=== PATIENT | male | born 1970 | race Caucasian/White ===

== ENCOUNTER 2021-09-14 08:37 | Outpatient (REF) | payer OTHER, SELFPAY ==
[2021-09-14 09:33] LABS: Appearance Urine CLEAR; Color Urine YELLOW; Glucose Urine UA >=1000 MG/DL (NEG); Leukocyte Esterase Urine NEG (NEG); Nitrite Urine NEG (NEG); Urine Blood NEG (NEG); Urine Ketones NEG (NEG); Urine Protein NEG (NEG-TRACE)
[2021-09-14 09:34] LABS: Hematocrit 43.7 % (42.0-52.0); Hemoglobin 14.4 g/dl (14.0-18.0); Mean Corpuscular Volume 88.1 fL (80.0-98.0); Mean Platelet Volume 9.6 fL (9.4-12.4); Platelet Count 234 X10*3/uL (160-400); Red Blood Count 4.96 X10*6/uL (4.60-5.80); Red Cell Distribution Width 12.9 % (11.0-16.0); White Blood Count 6.1 X10*3/uL (4.8-10.8)
[2021-09-14 09:44] LABS: Estimated Average Glucose 169 mg/dL; Hemoglobin A1c % 7.5 %
[2021-09-14 09:58] LABS: RBC Urine 0 /HPF (0); WBC Urine 0-2 /HPF (0-4)
[2021-09-14 10:00] LABS: Alanine Aminotransferase 26 U/L (0-40); Albumin Level 4.3 g/dL (3.5-5.0); Alkaline Phosphatase 50 U/L (39-117); Anion Gap 13 (12-20); Aspartate Amino Transferase 18 U/L (5-37); Bilirubin Direct 0.7 mg/dL (0.0-0.5); Bilirubin Total 2.2 mg/dL (0.0-1.0); Blood Urea Nitrogen 18 mg/dL (9-16); Calcium 9.2 mg/dL (8.4-10.2); Carbon Dioxide 27 mmol/L (22-29); Chloride 103 mmol/L (96-108); Cholesterol 163 mg/dL; Estimated Glomerular Filt Rate > 60; Glucose Random 152 mg/dL (60-115); HDL Cholesterol 43 mg/dL; LDL Cholesterol Calculated 91 mg/dl; Potassium 4.3 mmol/L (3.3-5.1); Sodium 139 mmol/L (135-145); Triglycerides 148 mg/dL
[2021-09-14 10:01] LABS: Bacteria Urine TRACE /LPF
[2021-09-14 10:03] LABS: Creatinine Urine 90.73 mg/dL; Microalbum/Creatinine Ratio Ur 78.2 ug/mg cr
[2021-09-14 10:21] LABS: Thyroid Stimulating Hormone 0.95 uIU/mL (0.32-4.0)
== END 2021-09-14 08:38 | disposition home or self-care (01) ==
LOC: HO.LAB 08:37
PROVIDERS: PCP Internal Medicine; Visit Provider Internal Medicine
DX: E11.9 Type 2 diabetes mellitus without complications (principal)
CPT/HCPCS: 36415; 80048; 80061; 80076; 81001; 82043; 83036; 84443; 85027

== ENCOUNTER → 2022-01-30 07:59 | Outpatient (BNVA) | payer OTHER, SELFPAY | PROVIDERS: PCP Internal Medicine; Referring Provider Internal Medicine; Visit Provider Nurse Practitioner Family | DX: Z13.89 Encounter for screening for other disorder (principal) ==

== ENCOUNTER 2022-05-06 11:22 | Day surgery (SDC) | payer OTHER, SELFPAY ==
--- NOTE | 2022-05-03 10:38 | HO.ANESPROP2 ---
Documented by User: Agustina Randhawa NP 05/03/22 10:39 HPI - Anesthesia Eval Consult details Narrative: 52yo M for Colonoscopy PMFSH Active Problems Active Problems: All Active Problems (Updated 09/25/21 @ 19:23 by Micah Feliciano MD) Screening for colon cancer (Acute) Class 2 severe obesity with body mass index (BMI) of 35 to 39.9 with serious comorbidity (Acute) Annual physical exam (Acute) Diabetes mellitus (Acute) Past Medical History Medical History (Updated 05/03/22 @ 10:38 by Agustina Randhawa NP) Class 2 severe obesity with body mass index (BMI) of 35 to 39.9 with serious comorbidity Diabetes mellitus Family History Family History Other Adopted Surgical History Surgical History No pertinent past surgical history Social History Social History Housing: House Alcohol intake: current Alcohol intake frequency: a few times a week Alcohol type: beer Patient Tobacco Use Status: Never used Tobacco e-Cigarette/Vaping Use: Never Used Second Hand Smoke Exposure: Yes Use of substances other than those prescribed or required for medical reasons: No Are you DNR?: No Advance Directives: No Advance Directives Information Provided: Yes Nutrition Risks: No Nutritional Risk service: No Current occupational status: employed Current occupation: [employer]formerly [employer] Cognitive needs: No Hearing needs: No Vision needs: No Meds Allergies Allergy/AdvReac Type Severity Reaction Status Date / Time No Known Allergies Allergy Unverified 01/30/22 08:08 [No Known Allergies*] Exam Exam Date and Time: May 03, 2022 1038 Pertinent Lab Results Pertinent Lab Results: Laboratory Tests 09/14/21 09/14/21 08:47 08:47 WBC 6.1 Hgb 14.4 Hct 43.7 Plt Count 234 Sodium 139 Potassium 4.3 Chloride 103 Carbon Dioxide 27 BUN 18 H Creatinine 1.06 Assessment and Plan Assessment Anesthesia Assessment: Chart Reviewed Documented by User: Tara Carpio MD 05/06/22 12:20 [facility] Past Medical History Medical History (Updated 05/03/22 @ 10:38 by Agustina Randhawa NP) Class 2 severe obesity with body mass index (BMI) of 35 to 39.9 with serious comorbidity Diabetes mellitus Family History Family History Other Adopted Family history of problems with anesthesia: No Surgical History Surgical History No pertinent past surgical history History of Problems with Anesthesia: No Social History Social History Housing: House Alcohol intake: current Alcohol intake frequency: a few times a week Alcohol type: beer Patient Tobacco Use Status: Never used Tobacco e-Cigarette/Vaping Use: Never Used Second Hand Smoke Exposure: Yes Use of substances other than those prescribed or required for medical reasons: No Are you DNR?: No Advance Directives: No Advance Directives Information Provided: Yes Nutrition Risks: No Nutritional Risk service: No Current occupational status: employed Current occupation: [employer]formerly [employer]) Cognitive needs: No Hearing needs: No Vision needs: No Meds Allergies Allergy/AdvReac Type Severity Reaction Status Date / Time No Known Allergies Allergy Unverified 01/30/22 08:08 [No Known Allergies*] Exam Airway Mallampati Class: II TM Dist: >3cm Neck ROM: Full Heart: rrr Lungs: cta Assessment and Plan Assessment Anesthesia Assessment: Anesthesia Plan Discussed and Chart Reviewed Final Anesthetic Review Family History of Problems with Anesthesia: No History of Problems with Anesthesia: No NPO: Yes ASA Class: III Final Preanesthetic Review: No Changes in Pt Med Stat, Meds/Allgs Chart Reviewed, Consent Obtained/Reviewed and Anes Risks/Benef Reviewed Patient Risk: Intermediate Procedure Risk: Intermediate Anesthetic Plan Anesthetic Plan: MAC: Disposition: Standard PACU
--- NOTE | 2022-05-06 11:31 | MHC.SHP ---
Pre-Procedural Eval Section A Date of Service: 05/06/22 The patient is an INPATIENT: No The History & Physical has been completed within 30 days and I have reviewed it.: No Section B Chief Complaint: screening Details of Present Illness: Colon cancer screening Relevant Family History (Specify if Yes): No Relevant Social History: None Present Medications: see Short Stay Collaborative assessment Medical History: Significant History (DM, Obesity) History of Previous Operations: No relevant previous surgery Allergies: Allergies Allergy/AdvReac Type Severity Reaction Status Date / Time No Known Allergies Allergy Unverified 01/30/22 08:08 [No Known Allergies*] Review of Systems Sugical H&P ROS: Negative: Constitution, Cardiovascular, Respiratory and Gastrointestinal Exam Surgical H&P Exam: Normal: Heart, Normal: Lungs, Normal: Extremities and Normal: Abdomen Plan Diagnosis/Plan: Unchanged I have reviewed the history and physical and performed a pertinent physical examination on my patient. No changes have occurred unless specified.
--- NOTE | 2022-05-06 11:32 | P.BOP_ITS ---
Brief Operative Note Date of Service: 05/06/22 Pre-op diagnosis: Colon cancer screening Post-op diagnosis: other (Colon polyps, diverticulosis) Procedure: COLONOSCOPY TILL CECUM WITH SNARE POLYPECTOMY Consent: Indications for the procedure and potential complications of bleeding, perforation, reaction to medications and missed diagnosis were discussed with the patient and informed consent was obtained. Instrument: Olympus CF H 190 L variable stiffness adult colonoscope Monitoring: Vital signs and clinical assessment, intermittent blood pressure monitoring, continuous EKG monitoring, Pulse oximetry and Carbon Dioxide monitoring were done throughout the procedure. Colon withdrawl time was 18 minutes. Procedure: The patient was placed in the left lateral decubitis position and pre-procedure medications were administered. After a digital rectal examination of the ano-rectum, the video colonoscope was inserted into the rectum and advanced through the colon to the cecum. The colonoscope was slowly withdrawn in a retrograde panoramic fashion and the colon mucosa was carefully examined including a retroflexed view of the rectum. Findings and interventions are described below. Procedure Difficulty: Without difficulty Findings: Terminal Ileum: Not evaluated Cecum: Normal Ascending Colon: An 8-9 mm sessile polyp in proximal AC removed with a cold snare Transverse Colon: Normal Descending Colon: Moderate diverticulosis Sigmoid Colon: Moderate diverticulosis Rectum: Normal Ano-rectum: Hypertrophied anal papillae Colon preparation: Good after some irrigation Impression and Post Procedure Diagnosis: Colonoscopy Findings: One small polyp removed Moderate diverticulosis seen in the left colon Plan: Await pathology results Patient has an appointment on 05/20/22 in the GI Clinic with Chayo Quick FNP- [facility]. Repeat Colonoscopy interval based on path results - in 5 years if polyps are adenomatous and since family hx if not known (pt is adopted) - adult colonoscope for future colonoscopies. Above findings were reviewed with the patient and colon polyps and diverticulosis handouts were given in the discharge area Surgeon: Robert Wright MD Anesthesia: MAC (Dr Vickers) Was an Sanipractic Physician used for this Procedure?: Yes Sanipractic Physician: Aria Galo Estimated blood loss (mL): 0 Pathology: other (A. ascending colon polyp) Condition: stable Disposition: PACU
[2022-05-06 11:37] VITALS: BMI 34.2
[2022-05-06] MEDS: Lactated Ringers 1,000 ML 100 ML IVCONT (12:14)
[2022-05-06 12:18] LABS: Glucose, Whole Blood 126 mg/dL (60-115)
--- NOTE | 2022-05-06 12:24 | W.PM.OPN ---
Operative Note Operative Note Date of Service: 05/06/22 Narrative: Pre-op diagnosis: Colon cancer screening Post-op diagnosis:?other (Colon polyps, diverticulosis) Procedure: COLONOSCOPY TILL CECUM WITH SNARE POLYPECTOMY Consent: Indications for the procedure and potential complications of bleeding, perforation, reaction to medications and missed diagnosis were discussed with the patient and informed consent was obtained. Instrument: Olympus CF H 190 L variable stiffness adult colonoscope Monitoring: Vital signs and clinical assessment, intermittent blood pressure monitoring, continuous EKG monitoring, Pulse oximetry and Carbon Dioxide monitoring were done throughout the procedure. Colon withdrawl time was 18 minutes. Procedure: The patient was placed in the left lateral decubitis position and pre-procedure medications were administered. After a digital rectal examination of the ano-rectum, the video colonoscope was inserted into the rectum and advanced through the colon to the cecum. The colonoscope was slowly withdrawn in a retrograde panoramic fashion and the colon mucosa was carefully examined including a retroflexed view of the rectum. Findings and interventions are described below. Procedure Difficulty: Without difficulty Findings: Terminal Ileum: Not evaluated Cecum:? Normal Ascending Colon:? An 8-9 mm sessile polyp in proximal AC removed with a cold snare Transverse Colon:? Normal Descending Colon:? Moderate diverticulosis Sigmoid Colon:? Moderate diverticulosis Rectum:? Normal Ano-rectum:? Hypertrophied anal papillae Colon preparation:? Good after some irrigation Impression and Post Procedure Diagnosis: Colonoscopy Findings: One small polyp removed Moderate diverticulosis seen in the left colon Plan: Await pathology results Patient has an appointment on 05/20/22 in the GI Clinic with Chayo Quick FNP-BC. Repeat Colonoscopy interval based on path results - in 5 years if polyps are adenomatous and since family hx is not known (pt is adopted) - adult colonoscope for future colonoscopies. Above findings were reviewed with the patient and colon polyps and diverticulosis handouts were given in the discharge area Surgeon: oRbert Wright MD Anesthesia:?MAC (Dr Vickers) Was an Hand Cutter Apprentice used for this Procedure?:?Yes Hand Cutter Apprentice:?Aria Galo Estimated blood loss (mL):?0 Pathology:?other (A. ascending colon polyp) Condition:?stable Disposition:?PACU
[2022-05-06 12:25] VITALS: BP 169/83; PULSE 82; RESP 17; TEMP 36.9; O2SAT 97
[2022-05-06 12:57] VITALS: BP 122/72; PULSE 77; RESP 16; TEMP 37.1; O2SAT 95
[2022-05-06 13:09] LABS: Glucose, Whole Blood 123 mg/dL (60-115)
[2022-05-06 13:12] VITALS: BP 146/90; PULSE 75; RESP 16; TEMP 37.1; O2SAT 97
== END 2022-05-06 14:04 | disposition home or self-care (01) ==
PROVIDERS: PCP Internal Medicine; Visit Provider Internal Medicine Gastroenterology
PROC: 0DJD8ZZ Inspection of Lower Intestinal Tract, Via Natural or Artificial Opening Endoscopic (ICD-10-PCS; CPT 45378; principal; 2022-05-06 12:40)
DX: Z12.11 Encounter for screening for malignant neoplasm of colon (principal); D12.2 Benign neoplasm of ascending colon; K57.30 Diverticulosis of large intestine without perforation or abscess without bleeding; K62.89 Other specified diseases of anus and rectum; E66.01 Morbid (severe) obesity due to excess calories; Z68.36 Body mass index [BMI] 36.0-36.9, adult; E11.9 Type 2 diabetes mellitus without complications; Z79.84 Long term (current) use of oral hypoglycemic drugs
CPT/HCPCS: 45385; 82947; 88305

== ENCOUNTER 2023-07-17 13:50 | Outpatient (AMB) | payer OTHER, SELFPAY ==
--- NOTE | 2023-07-17 14:13 | MHC.PC.OV ---
Vital Signs 07/17/23 14:14 Height 6 ft 1 in Weight 279 lb 4 oz BMI 36.8 BP 132/80 Blood Pressure Location Lt brachial Position Sitting Pulse 99 Pulse Source Pulse Oximeter Pulse Oximetry (%) 94 Oxygen Delivery Method Room Air Intake Visit Reasons: 6 month f/u Intake Note: Patient is here to follow up on DM, Obesity. Hall Monitor Required: No Membership Administrator: Not Required per policy Accompanied by: Self / Same As Patient Allergies No Known Allergies [No Known Allergies*] Allergy (Verified 07/17/23 15:25) Medication List - Last Reconciled 07/17/23 by Micah Feliciano MD colchicine (gout) 0.6 mg PO BID empagliflozin (Jardiance) 25 mg PO DAILY hydrochlorothiazide 25 mg PO DAILY lisinopril 20 mg PO DAILY pioglitazone 15 mg PO DAILY simvastatin 40 mg PO DAILY Tobacco use date assessed: 07/17/23 Dental Screening Dental Screen Date: 07/17/23 Did you have a dental visit in the last 12 months?: No Did you have a dental problem in the last 6 months where you did not have access to dental care?: No Was dental information given to patient?: No HPI 6 month f/u HPI Details 53-year-old male presents to the office to discuss his chronic medical conditions. Patient reports that he has not been taking the Ozempic medication. Insurance is not covering the medication. He is not checking his blood sugars at home. Continues to work and do all activities of daily living. Not following any particular diet or exercise. Patient would like a refill on colchicine. Since last office visit, had 1 episode of gout. 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 Raghu Hogan, Luz Gonzalez, Sami Spaulding and colleagues, with an educational ismael from [employer] Physical exam (Primary Care) Vital Signs: Last Vital Signs Pulse 99 07/17/23 14:14 BP 132/80 07/17/23 14:14 Pulse Ox 94 07/17/23 14:14 Oxygen Delivery Method Room Air 07/17/23 14:14 BMI result Body Mass Index 36.8 Tobacco/Smoking Status: Tobacco use Status Tobacco use date assessed 07/17/23 07/17/23 14:14 Patient Tobacco Use Status Never used Tobacco 07/17/23 14:14 e-Cigarette/Vaping Use Never Used 07/17/23 14:14 Thrive Assessment: Date of Thrive Assessment Date Thrive assessed 01/16/23 07/17/23 14:14 Const General: cooperative and healthy appearing Nutritional Appearance: well nourished Orientation/consciousness: patient oriented x3 Limitations: no limitations HENMT Head: Yes normal to inspection Eyes General: appearance normal, both eyes and all related structures Neck Neck: Yes normal visual inspection Chest Chest palpation & inspection: normal palpation of entire chest wall Resp Effort & Inspection: normal respiratory effort Neuro General: patient oriented x3 Results AMB Hemoglobin A1c AMB Hemoglobin A1c 9.7 % Last Edit by RADHA Diggs on 07/17/23 14:28 Results Reviewed Results Reviewed: Laboratory Last Values Hgb A1c (Clinic) 9.7 % (4.0-6.0) H 07/17/23 14:13 Assessment and Plan Assessment & Plan (1) Class 2 severe obesity with body mass index (BMI) of 35 to 39.9 with serious comorbidity: Code(s): E66.01 - Morbid (severe) obesity due to excess calories Plan: Counseling on the importance of diet and exercise done. (2) Diabetes mellitus: Code(s): E11.9 - Type 2 diabetes mellitus without complications Plan: A1c has increased from 6-9.7. This is partially due to not taking his medications as directed. Instead of Ozempic, Trulicity has been called in. Jardiance has been ordered. Patient was advised to check blood sugars periodically. Colchicine has been ordered. Orders: Orders Basic Metabolic Panel Today E11.9 - Type 2 diabetes mellitus without complications, E66.01 - Morbid (severe) obesity due to excess calories Lipid Panel Today E11.9 - Type 2 diabetes mellitus without complications, E66.01 - Morbid (severe) obesity due to excess calories Thyroid Stimulating Hormone Today E11.9 - Type 2 diabetes mellitus without complications, E66.01 - Morbid (severe) obesity due to excess calories Microalbumin, Random (w Creat) Today E11.9 - Type 2 diabetes mellitus without complications, E66.01 - Morbid (severe) obesity due to excess calories UA and rflx microscopic Today E11.9 - Type 2 diabetes mellitus without complications, E66.01 - Morbid (severe) obesity due to excess calories AMB Hemoglobin A1c Today E11.9 - Type 2 diabetes mellitus without complications Complete Blood Count no Diff Today E11.9 - Type 2 diabetes mellitus without complications, E66.01 - Morbid (severe) obesity due to excess calories Liver Panel Today E11.9 - Type 2 diabetes mellitus without complications, E66.01 - Morbid (severe) obesity due to excess calories AMB Dulaglutide Injection Patient Supplied Today E11.9 - Type 2 diabetes mellitus without complications Medications: New empagliflozin (Jardiance) 25 mg PO DAILY 90 tabs 1RF Trulicity (dulaglutide) 0.75 mg (0.5 mL) subcut ONCE 0.5 mL 0RF NS E11.9 - Type 2 diabetes mellitus without complications colchicine (gout) 0.6 mg PO BID 30 tabs 0RF Discontinued semaglutide (Ozempic) Discontinued Reason: Insurance Denied 0.25 mg (0.368 mL) subcut QWEEK 3 mL 0RF Coding Level of Care Code Est Pt Level 4 (77645) Diagnoses Class 2 severe obesity with body mass index (BMI) of 35 to 39.9 with serious comorbidity E66.01 Diabetes mellitus E11.9
[2023-07-17 14:14] VITALS: BP 132/80; PULSE 99; O2SAT 94; BMI 36.8
== END 2023-07-17 14:53 | disposition home or self-care (01) ==
PROVIDERS: PCP Internal Medicine; Visit Provider Internal Medicine
DX: E11.9 Type 2 diabetes mellitus without complications (principal); E66.01 Morbid (severe) obesity due to excess calories; Z68.36 Body mass index [BMI] 36.0-36.9, adult
CPT/HCPCS: 83036; 99214

== ENCOUNTER 2023-07-17 14:57 | Outpatient (REF) | payer OTHER, SELFPAY ==
[2023-07-17 15:26] LABS: Hematocrit 43.6 % (42.0-52.0); Hemoglobin 14.5 g/dl (14.0-18.0); Mean Corpuscular HGB Conc 33.3 g/dl (31.0-36.0); Mean Corpuscular Hemoglobin 28.8 pg (27.0-33.0); Mean Corpuscular Volume 86.5 fL (80.0-98.0); Mean Platelet Volume 9.7 fL (9.4-12.4); Platelet Count 239 X10*3/uL (160-400); Red Blood Count 5.04 X10*6/uL (4.60-5.80); Red Cell Distribution Width 12.9 % (11.0-16.0); White Blood Count 7.9 X10*3/uL (4.8-10.8)
[2023-07-17 15:53] LABS: Appearance Urine Clear; Color Urine Yellow; Glucose Urine UA >=1000 mg/dL (Negative); Leukocyte Esterase Urine Negative (Negative); Nitrite Urine Negative (Negative); PH 5.5 (5.0-9.0); Specific Gravity - Urine 1.025 (1.005-1.025); UMIC TRIGGER UA YES; Urine Blood Negative (Negative); Urine Ketones Negative (Negative); Urine Protein 30 (1+) mg/dL (Neg-Trace)
[2023-07-17 15:58] LABS: Bacteria Urine None Seen (None Seen); Hyaline Casts Urine 0-2 /LPF (0-2); RBC Urine 0-2 /HPF (0-2); Squamous Epithelial Cell Urine 0-2 /HPF (0-2); WBC Urine 0-5 /HPF (0-5)
[2023-07-17 17:06] LABS: Alanine Aminotransferase 21 U/L (0-40); Albumin Level 4.3 g/dL (3.5-5.0); Alkaline Phosphatase 56 U/L (39-117); Anion Gap 11 (12-20); Aspartate Amino Transferase 15 U/L (5-37); Bilirubin Direct 0.3 mg/dL (0.0-0.5); Bilirubin Total 1.2 mg/dL (0.0-1.0); Blood Urea Nitrogen 15 mg/dL (9-16); Calcium 9.9 mg/dL (8.4-10.2); Carbon Dioxide 30 mmol/L (22-29); Chloride 101 mmol/L (96-108); Cholesterol 205 mg/dL (<200); Estimated Glomerular Filt Rate > 60; Glucose Random 319 mg/dL (60-115); HDL Cholesterol 50 mg/dL (>40); LDL Cholesterol Calculated 96 mg/dL (<100); Potassium 4.1 mmol/L (3.3-5.1); Sodium 138 mmol/L (135-145); Total Protein 7.4 g/dL (6.5-8.0); Triglycerides 295 mg/dL (<150)
[2023-07-17 17:22] LABS: Thyroid Stimulating Hormone 0.91 uIU/mL (0.32-4.0)
[2023-07-17 18:06] LABS: Microalbum/Creatinine Ratio Ur 507.4 ug/mg cr (<30)
== END 2023-07-17 14:58 | disposition home or self-care (01) ==
LOC: HO.LAB 14:57
PROVIDERS: PCP Internal Medicine; Visit Provider Internal Medicine
DX: E11.9 Type 2 diabetes mellitus without complications (principal); E66.01 Morbid (severe) obesity due to excess calories
CPT/HCPCS: 36415; 80048; 80061; 80076; 81001; 82043; 82570; 84443; 85027

== ENCOUNTER 2023-10-16 09:39 | Outpatient (AMB) | payer OTHER, SELFPAY ==
--- NOTE | 2023-10-16 09:42 | MHC.PC.OV ---
Vital Signs 10/16/23 09:43 Height 6 ft 1 in Weight 272 lb 6 oz BMI 35.9 BP 124/82 Blood Pressure Location Lt brachial Position Sitting Pulse 85 Pulse Source Pulse Oximeter Pulse Oximetry (%) 95 Oxygen Delivery Method Room Air Intake Visit Reasons: 3 month f/u Intake Note: Patient is here to follow up on DM, Obesity. Director Chemistry Required: No Director Volunteer Services: Not Required per policy Accompanied by: Self / Same As Patient Allergies No Known Allergies [No Known Allergies*] Allergy (Verified 10/16/23 09:43) Tobacco use date assessed: 10/16/23 Dental Screening Dental Screen Date: 10/16/23 Did you have a dental visit in the last 12 months?: No Did you have a dental problem in the last 6 months where you did not have access to dental care?: No Was dental information given to patient?: No HPI 3 month f/u HPI Details 53-year-old male presents to the office to discuss his chronic medical conditions. Since last office visit patient has been taking Trulicity and pioglitazone. He did not start the Jardiance. Checking his blood sugar twice a week. According to the patient it is in the 120 range. Able to function and do all activities of daily living. [facility] Medical History Class 2 severe obesity with body mass index (BMI) of 35 to 39.9 with serious comorbidity Diabetes mellitus Surgical History Hx of colonoscopy No pertinent past surgical history Family History Other Adopted Social History Housing: House Alcohol intake: current Alcohol intake frequency: a few times a week Alcohol type: beer Patient Tobacco Use Status: Never used Tobacco e-Cigarette/Vaping Use: Never Used Second Hand Smoke Exposure: Yes service: No Current occupational status: employed Current occupation: [employer] Cognitive needs: No Hearing needs: No Vision needs: No Questionnaire Thrive Questionnaire Date Thrive assessed: 01/16/23 IVONNE-7 AMB Questionnaire IVONNE-7 Date IVONNE - 7 assessed: 01/16/23 Source: Developed by Drs. Raghu Hogan, Luz Gonzalez, Sami Spaulding and colleagues, with an educational ismael from [employer]. Physical exam (Primary Care) Vital Signs: Last Vital Signs Pulse 85 10/16/23 09:43 BP 124/82 10/16/23 09:43 Pulse Ox 95 10/16/23 09:43 Oxygen Delivery Method Room Air 10/16/23 09:43 BMI result Body Mass Index 35.9 Tobacco/Smoking Status: Tobacco use Status Tobacco use date assessed 10/16/23 10/16/23 09:50 Patient Tobacco Use Status Never used Tobacco 10/16/23 09:50 e-Cigarette/Vaping Use Never Used 10/16/23 09:50 Thrive Assessment: Date of Thrive Assessment Date Thrive assessed 01/16/23 10/16/23 09:50 Const General: cooperative and healthy appearing Nutritional Appearance: well nourished Orientation/consciousness: patient oriented x3 Limitations: no limitations HENMT Head: Yes normal to inspection Eyes General: appearance normal, both eyes and all related structures Neck Neck: Yes normal visual inspection Chest Chest palpation & inspection: normal palpation of entire chest wall Resp Effort & Inspection: normal respiratory effort Neuro General: patient oriented x3 Results AMB Hemoglobin A1c AMB Hemoglobin A1c 9.0 % Last Edit by RADHA Diggs on 10/16/23 09:58 Results Reviewed Results Reviewed: Laboratory Last Values Hgb A1c (Clinic) 9.0 % (4.0-6.0) H 10/16/23 09:42 Assessment and Plan Assessment & Plan (1) Diabetes mellitus: Code(s): E11.9 - Type 2 diabetes mellitus without complications Plan: From 9.6, he A1c has reduced to 9.0. Trulicity has been increased to 1.5 mg once a week. Jardiance has been restarted. Patient was again given instructions on diet and exercise. Orders: Orders AMB Hemoglobin A1c Today E11.9 - Type 2 diabetes mellitus without complications Medications: New dulaglutide (Trulicity) 1.5 mg (0.5 mL) subcut QWEEK 2 mL 1RF empagliflozin (Jardiance) 25 mg PO DAILY 30 tabs 0RF Discontinued dulaglutide (Trulicity) Discontinued Reason: Doctor's Order 0.75 mg (0.5 mL) subcut QWEEK 2 mL 1RF E11.9 - Type 2 diabetes mellitus without complications Coding Level of Care Code Est Pt Level 4 (33317) Diagnoses Diabetes mellitus E11.9
[2023-10-16 09:43] VITALS: BP 124/82; PULSE 85; O2SAT 95; BMI 35.9
== END 2023-10-16 10:23 | disposition home or self-care (01) ==
PROVIDERS: PCP Internal Medicine; Visit Provider Internal Medicine
DX: E11.9 Type 2 diabetes mellitus without complications (principal)
CPT/HCPCS: 83036; 99214

== ENCOUNTER 2024-01-15 13:52 | Outpatient (AMB) | payer OTHER, SELFPAY ==
--- NOTE | 2024-01-15 14:05 | MHC.PC.OV ---
Vital Signs 01/15/24 14:07 Height 6 ft 1 in Weight 264 lb 4 oz BMI 34.9 BP 100/70 Blood Pressure Location Lt brachial Position Sitting Pulse 77 Pulse Source Pulse Oximeter Pulse Oximetry (%) 94 Oxygen Delivery Method Room Air Intake Visit Reasons: 3mth f/u Intake Note: Patient is here to follow up on DM, Obesity. Information Technology Director Required: No Reed Or Wind Instrument Repairer: Not Required per policy Accompanied by: Self / Same As Patient Allergies No Known Allergies [No Known Allergies*] Allergy (Verified 01/15/24 14:58) Medication List - Last Reconciled 01/15/24 by Micah Feliciano MD blood sugar diagnostic (OneTouch Ultra Test strips) check once daily blood-glucose meter (WeilosTouch Ultra2 Meter) check once daily colchicine 0.6 mg PO BID dulaglutide (Trulicity) 1.5 mg (0.5 mL) subcut QWEEK empagliflozin (Jardiance) 25 mg PO DAILY hydrochlorothiazide 25 mg PO DAILY lancets (OneTouch UltraSoft 2 Lancet) check once daily lisinopril 20 mg PO DAILY pioglitazone 15 mg PO DAILY simvastatin 40 mg PO DAILY Tobacco use date assessed: 01/15/24 Dental Screening Dental Screen Date: 01/15/24 Did you have a dental visit in the last 12 months?: No Did you have a dental problem in the last 6 months where you did not have access to dental care?: No Was dental information given to patient?: No HPI 3mth f/u HPI Details 53-year-old male presents to the office to discuss his chronic medical conditions. Patient has been taking Trulicity which is back ordered and he has not been able to get it for 6 weeks. His sugars were reasonably controlled with the Trulicity but they are now going back up. He is trying to exercise to the best of his ability. Compliant with other medications. [facility] Medical History Class 2 severe obesity with body mass index (BMI) of 35 to 39.9 with serious comorbidity Diabetes mellitus Surgical History Hx of colonoscopy No pertinent past surgical history Family History Other Adopted Social History Housing: House Alcohol intake: current Alcohol intake frequency: a few times a week Alcohol type: beer Patient Tobacco Use Status: Never used Tobacco e-Cigarette/Vaping Use: Never Used Second Hand Smoke Exposure: Yes service: No Current occupational status: employed Current occupation: [employer] Cognitive needs: No Hearing needs: No Vision needs: No Questionnaire PHQ-9 Over the last 2 weeks, how often have you been bothered by any of the following problems? 1. Little interest or pleasure in doing things: not at all 2. Feeling down, depressed, or hopeless: not at all 3. Trouble falling or staying asleep, or sleeping too much: not at all 4. Feeling tired or having little energy: not at all 5. Poor appetite or overeating: not at all 6. Feeling bad about yourself - or that you are a failure or have let yourself or your family down: not at all 7. Trouble concentrating on things, such as reading the newspaper or watching television: not at all 8. Moving or speaking so slowly that other people could have noticed. Or the opposite - being so fidgety or restless that you have been moving around a lot more than usual: not at all 9. Thoughts that you would be better off or of hurting yourself in some way: not at all Total score: 0 Depression Screening Interpretation: Negative Depression Screening Done: Yes Source: Developed by Drs. Raghu Hogna, Luz Gonzalez, Sami Spaulding and colleagues, with an educational ismael from [employer]. Thrive Questionnaire Date Thrive assessed: 01/15/24 I am a: Patient What is your living situation today?: I have a steady place to live Within the past 12 months, did the food you bought not last and you didn't have the money to get more?: Never true Within the past 12 months, did you worry whether your food would run out before you got money to buy more?: Never true Do you have trouble paying for medicines?: No Do you have trouble getting transportation to medical appointments?: No Do you have trouble paying your heating and electricity bill?: No Do you have trouble taking care of your child, family member or friend?: No Do you have trouble with day-to-day activities such as bathing, preparing meals, shopping, managing finances, etc.?: No Are you currently unemployed and looking for a job?: No Are you interested in more education?: No Currently or been in a relationship where the following occur: no concerns reported THRIVE Score: 0 AUDIT C Alcohol Use Questionnaire (AUDIT-C) 1. How often do you have a drink containing alcohol?: Never Total Score: 0 IVONNE-7 AMB Questionnaire IVONNE-7 Date IVONNE - 7 assessed: 01/15/24 Feeling nervous, anxious, or on edge: 0 = Not at all Not being able to stop or control worryin = Not at all Worrying too much about different things: 0 = Not at all Trouble relaxin = Not at all Being so restless that it is hard to sit still: 0 = Not at all Becoming easily annoyed or irritable: 0 = Not at all Feeling afraid as if something awful might happen: 0 = Not at all Total IVONNE-7 score (0-4 normal; 5-9 mild; 10-14 moderate; 15-21 severe): 0 Source: Developed by Drs. Raghu Hogan, Luz Gonzalez, Sami Spaulding and colleagues, with an educational ismael from [employer]. Physical exam (Primary Care) Vital Signs: Last Vital Signs Pulse 77 01/15/24 14:07 BP 100/70 01/15/24 14:07 Pulse Ox 94 01/15/24 14:07 Oxygen Delivery Method Room Air 01/15/24 14:07 BMI result Body Mass Index 34.9 Tobacco/Smoking Status: Tobacco use Status Tobacco use date assessed 01/15/24 01/15/24 14:14 Patient Tobacco Use Status Never used Tobacco 01/15/24 14:14 e-Cigarette/Vaping Use Never Used 01/15/24 14:14 PHQ-9: PHQ-9 Score PHQ-9: Total score 0 01/15/24 14:14 Depression Screening Interpretation: Negative Thrive Assessment: Date of Thrive Assessment Date Thrive assessed 01/15/24 01/15/24 14:14 Currently or been in a relationship where the following occur: no concerns reported Const General: cooperative and healthy appearing Nutritional Appearance: well nourished Orientation/consciousness: patient oriented x3 Limitations: no limitations HENMT Head: Yes normal to inspection Eyes General: appearance normal, both eyes and all related structures Neck Neck: Yes normal visual inspection Chest Chest palpation & inspection: normal palpation of entire chest wall Resp Effort & Inspection: normal respiratory effort Neuro General: patient oriented x3 Results AMB Hemoglobin A1c AMB Hemoglobin A1c 8.4 % Last Edit by RADHA Diggs on 01/15/24 14:19 Results Reviewed Results Reviewed: Laboratory Last Values Hgb A1c (Clinic) 8.4 % (4.0-6.0) H 01/15/24 14:05 Assessment and Plan Assessment & Plan (1) Diabetes mellitus: Code(s): E11.9 - Type 2 diabetes mellitus without complications Plan: A1c is 8.4. It is trending downward. Patient takes 1.5 mg Trulicity dose. This is not available and is in backlog. Insurance company will not allow two injections of 0.75 mg. Therefore Trulicity is being switched to Ozempic. (2) Class 2 severe obesity with body mass index (BMI) of 35 to 39.9 with serious comorbidity: Code(s): E66.01 - Morbid (severe) obesity due to excess calories Orders: Orders AMB Hemoglobin A1c Today E11.9 - Type 2 diabetes mellitus without complications Coding Level of Care Code Est Pt Level 4 (26365) Diagnoses Diabetes mellitus E11.9 Class 2 severe obesity with body mass index (BMI) of 35 to 39.9 with serious comorbidity E66.01
[2024-01-15 14:07] VITALS: BP 100/70; PULSE 77; O2SAT 94; BMI 34.9
== END 2024-01-15 14:56 | disposition home or self-care (01) ==
PROVIDERS: PCP Internal Medicine; Visit Provider Internal Medicine
DX: E11.9 Type 2 diabetes mellitus without complications (principal); E66.01 Morbid (severe) obesity due to excess calories; Z68.34 Body mass index [BMI] 34.0-34.9, adult
CPT/HCPCS: 83036; 99214

== ENCOUNTER 2024-05-05 14:32 | Outpatient (AMB) | payer OTHER, SELFPAY ==
--- NOTE | 2024-05-05 14:37 | A.OFFPC_ITS ---
Vital Signs 05/05/24 14:39 Height 6 ft 1 in Weight 251 lb 8 oz BMI 33.2 BP 102/66 Blood Pressure Location Lt brachial Position Sitting Pulse 91 Pulse Source Pulse Oximeter Pulse Oximetry (%) 95 Oxygen Delivery Method Room Air Intake Visit Reasons: 3mof\u Intake Note: Patient is here to follow up on DM, HTN. Workers Compensation Administrator Required: No Consumer Education Specialist: Not Required per policy Accompanied by: Self / Same As Patient Allergies No Known Allergies [No Known Allergies*] Allergy (Verified 05/05/24 14:39) Tobacco use date assessed: 05/05/24 Dental Screening Dental Screen Date: 01/15/24 HPI 3mof\u HPI Details 54-year-old male presents to the office to discuss his chronic medical conditions. Compliant with medications. Reporting no side effects. Since he started Ozempic he has dropped 13 lb. Feeling better and able to function and do all activities of daily living. [facility] Medical History Class 2 severe obesity with body mass index (BMI) of 35 to 39.9 with serious comorbidity Diabetes mellitus Surgical History Hx of colonoscopy No pertinent past surgical history Family History Other Adopted Social History Housing: House Alcohol intake: current Alcohol intake frequency: a few times a week Alcohol type: beer Patient Tobacco Use Status: Never used Tobacco e-Cigarette/Vaping Use: Never Used Second Hand Smoke Exposure: Yes service: No Current occupational status: employed Current occupation: [employer] Cognitive needs: No Hearing needs: No Vision needs: No Questionnaire PHQ-9 Over the last 2 weeks, how often have you been bothered by any of the following problems? 1. Little interest or pleasure in doing things: not at all 2. Feeling down, depressed, or hopeless: not at all 3. Trouble falling or staying asleep, or sleeping too much: not at all 4. Feeling tired or having little energy: not at all 5. Poor appetite or overeating: not at all 6. Feeling bad about yourself - or that you are a failure or have let yourself or your family down: not at all 7. Trouble concentrating on things, such as reading the newspaper or watching television: not at all 8. Moving or speaking so slowly that other people could have noticed. Or the opposite - being so fidgety or restless that you have been moving around a lot more than usual: not at all 9. Thoughts that you would be better off or of hurting yourself in some way: not at all Total score: 0 Depression Screening Interpretation: Negative Depression Screening Done: Yes Source: Developed by Drs. Raghu Hogan, Luz Gonzalez, Sami Spaulding and colleagues, with an educational ismael from [employer]. Thrive Questionnaire Date Thrive assessed: 01/15/24 IVONNE-7 AMB Questionnaire IVONNE-7 Date IVONNE - 7 assessed: 01/15/24 Source: Developed by Drs. Raghu Hogan, Luz Gonzalez, Sami Spaulding and colleagues, with an educational ismael from [employer]. Physical exam (Primary Care) Vital Signs: Last Vital Signs Pulse 91 05/05/24 14:39 BP 102/66 05/05/24 14:39 Pulse Ox 95 05/05/24 14:39 Oxygen Delivery Method Room Air 05/05/24 14:39 Care Plan Goal for BP management: Blood pressure is in range. BMI result Body Mass Index 33.2 BMI Assessment/Plan discussion: High Tobacco/Smoking Status: Tobacco use Status Tobacco use date assessed 05/05/24 05/05/24 14:46 Patient Tobacco Use Status Never used Tobacco 05/05/24 14:46 e-Cigarette/Vaping Use Never Used 05/05/24 14:46 PHQ-9: PHQ-9 Score PHQ-9: Total score 0 05/05/24 14:46 Depression Screening Interpretation: Negative Thrive Assessment: Date of Thrive Assessment Date Thrive assessed 01/15/24 05/05/24 14:46 Const General: cooperative and healthy appearing Nutritional Appearance: well nourished Orientation/consciousness: patient oriented x3 Limitations: no limitations HENMT Head: Yes normal to inspection Eyes General: appearance normal, both eyes and all related structures Neck Neck: Yes normal visual inspection Chest Chest palpation & inspection: normal palpation of entire chest wall Resp Effort & Inspection: normal respiratory effort Neuro General: patient oriented x3 Results AMB Hemoglobin A1c AMB Hemoglobin A1c 6.6 % Last Edit by RADHA Diggs on 05/05/24 14:54 Results Reviewed Results Reviewed: Laboratory Last Values Hgb A1c (Clinic) 6.6 % (4.0-6.0) H 05/05/24 14:37 Assessment and Plan Assessment & Plan (1) Class 2 severe obesity with body mass index (BMI) of 35 to 39.9 with serious comorbidity: Code(s): E66.01 - Morbid (severe) obesity due to excess calories Plan: Counseled on the importance of diet and exercise. (2) Diabetes mellitus: Code(s): E11.9 - Type 2 diabetes mellitus without complications Plan: Patient congratulated on his excellent diabetes control. A1c has dropped to 6.6. Continue the Ozempic and other medications. Blood work has been ordered. Orders: Orders AMB Hemoglobin A1c Today E11.9 - Type 2 diabetes mellitus without complications Complete Blood Count no Diff Today E11.9 - Type 2 diabetes mellitus without complications UA and rflx microscopic Today E11.9 - Type 2 diabetes mellitus without complications Microalbumin, Random (w Creat) Today E11.9 - Type 2 diabetes mellitus without complications Basic Metabolic Panel Today E11.9 - Type 2 diabetes mellitus without complications Lipid Panel Today E11.9 - Type 2 diabetes mellitus without complications Liver Panel Today E11.9 - Type 2 diabetes mellitus without complications Thyroid Stimulating Hormone Today E11.9 - Type 2 diabetes mellitus without complications Coding Level of Care Code Est Pt Level 4 (41876) Complex EM visit Add On [id number] Diagnoses Class 2 severe obesity with body mass index (BMI) of 35 to 39.9 with serious comorbidity E66.01 Diabetes mellitus E11.9
[2024-05-05 14:39] VITALS: BP 102/66; PULSE 91; O2SAT 95; BMI 33.2
== END 2024-05-05 15:05 | disposition home or self-care (01) ==
PROVIDERS: PCP Internal Medicine; Visit Provider Internal Medicine
DX: E11.9 Type 2 diabetes mellitus without complications (principal); E66.01 Morbid (severe) obesity due to excess calories; Z68.33 Body mass index [BMI] 33.0-33.9, adult
CPT/HCPCS: 83036; 99214

== ENCOUNTER 2024-11-11 14:59 | Outpatient (AMB) | payer OTHER, SELFPAY ==
--- NOTE | 2024-11-11 15:10 | A.OFFPC_ITS ---
Vital Signs 11/11/24 15:12 Height 6 ft 1 in Weight 266 lb 6 oz BMI 35.1 BP 110/70 Blood Pressure Location Lt brachial Position Sitting Pulse 93 Pulse Source Pulse Oximeter Temp 97.5 F Temp Source Skin Pulse Oximetry (%) 93 Oxygen Delivery Method Room Air Intake Visit Reasons: 6mth f/u Intake Note: Patient is here to follow up on DM. Pt decline flu shot today. 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 per policy Accompanied by: Self / Same As Patient Allergies No Known Allergies [No Known Allergies*] Allergy (Verified 11/11/24 17:20) Medication List - Last Reconciled 11/11/24 by Amelia Narayanan PA-C blood sugar diagnostic ([employer]uch Ultra Test strips) check once daily blood-glucose meter ([employer]uch Ultra2 Meter) check once daily colchicine 0.6 mg PO BID empagliflozin (Jardiance) 25 mg PO DAILY hydrochlorothiazide 25 mg PO DAILY lancets ([employer] UltraSoft 2 Lancet) check once daily lisinopril 20 mg PO DAILY pioglitazone 15 mg PO DAILY semaglutide (Ozempic) 2 mg (1.5 mL) subcut QWEEK 12 weeks simvastatin 40 mg PO DAILY Tobacco use date assessed: 11/11/24 Dental Screening Dental Screen Date: 11/11/24 Did you have a dental visit in the last 12 months?: No Did you have a dental problem in the last 6 months where you did not have access to dental care?: No Was dental information given to patient?: No [facility] Medical History (Updated 11/11/24 @ 17:22 by Amelia Narayanan PA-C) Class 2 severe obesity with body mass index (BMI) of 35 to 39.9 with serious comorbidity Diabetes mellitus Surgical History (Updated 11/11/24 @ 17:20 by Amelia Narayanan PA-C) Hx of colonoscopy (~05/06/22) No pertinent past surgical history Family History Other Adopted Social History Housing: House Alcohol intake: current Alcohol intake frequency: a few times a week Alcohol type: beer Patient Tobacco Use Status: Never used Tobacco e-Cigarette/Vaping Use: Never Used Second Hand Smoke Exposure: Yes service: No Current occupational status: employed Current occupation: [employer] Cognitive needs: No Hearing needs: No Vision needs: No Questionnaire PHQ-9 Over the last 2 weeks, how often have you been bothered by any of the following problems? 1. Little interest or pleasure in doing things: not at all 2. Feeling down, depressed, or hopeless: not at all 3. Trouble falling or staying asleep, or sleeping too much: not at all 4. Feeling tired or having little energy: not at all 5. Poor appetite or overeating: not at all 6. Feeling bad about yourself - or that you are a failure or have let yourself or your family down: not at all 7. Trouble concentrating on things, such as reading the newspaper or watching television: not at all 8. Moving or speaking so slowly that other people could have noticed. Or the opposite - being so fidgety or restless that you have been moving around a lot more than usual: not at all 9. Thoughts that you would be better off or of hurting yourself in some way: not at all Total score: 0 Depression Screening Interpretation: Negative Depression Screening Done: Yes Source: Developed by Drs. Raghu Hogan, Luz Gonzalez, Sami cuevas nd colleagues, with an educational ismael from [employer]. Thrive Questionnaire Date Thrive assessed: 11/11/24 I am a: Patient What is your living situation today?: I have a steady place to live Within the past 12 months, did the food you bought not last and you didn't have the money to get more?: Never true Within the past 12 months, did you worry whether your food would run out before you got money to buy more?: Never true Do you have trouble paying for medicines?: No Do you have trouble getting transportation to medical appointments?: No Do you have trouble paying your heating and electricity bill?: No Do you have trouble taking care of your child, family member or friend?: No Do you have trouble with day-to-day activities such as bathing, preparing meals, shopping, managing finances, etc.?: No Are you currently unemployed and looking for a job?: No Are you interested in more education?: No Please select the resources that you would like help with: None Currently or been in a relationship where the following occur: No concerns reported THRIVE Score: 0 AUDIT C Alcohol Use Questionnaire (AUDIT-C) 1. How often do you have a drink containing alcohol?: Monthly or less 2. How many drinks containing alcohol do you have on a typical day when you are drinking?: 3 or 4 3. How often do you have six or more drinks on one occasion?: Less than monthly Total Score: 3 Score Reviewed/Action Taken: Yes (No action taken patient drinks socially not daily ) IVONNE-7 AMB Questionnaire IVONNE-7 Date IVONNE - 7 assessed: 11/11/24 Feeling nervous, anxious, or on edge: 0 = Not at all Not being able to stop or control worryin = Not at all Worrying too much about different things: 0 = Not at all Trouble relaxin = Not at all Being so restless that it is hard to sit still: 0 = Not at all Becoming easily annoyed or irritable: 0 = Not at all Feeling afraid as if something awful might happen: 0 = Not at all Total IVONNE-7 score (0-4 normal; 5-9 mild; 10-14 moderate; 15-21 severe): 0 Source: Developed by Drs. Raghu Hogan, Luz Gonzalez, Sami Spaulding and colleagues, with an educational ismael from [employer]. IVONNE-7 Assessment Billing IVONNE-7 Assessment Tool: IVONNE-7 Assessment 18326 Physical exam (Primary Care) Vital Signs: Last Vital Signs Temp 97.5 F 11/11/24 15:12 Pulse 93 11/11/24 15:12 BP 110/70 11/11/24 15:12 Pulse Ox 93 11/11/24 15:12 Oxygen Delivery Method Room Air 11/11/24 15:12 Care Plan Goal for BP management: Blood pressure 110 over 70 at goal today. No changes in regimen. BMI result Body Mass Index 35.1 BMI Assessment/Plan discussion: High BMI High, discussed plan: lifestyle, weight reduction, dietary, physical activity and alcohol moderation Tobacco/Smoking Status: Tobacco use Status Tobacco use date assessed 11/11/24 11/11/24 15:19 Patient Tobacco Use Status Never used Tobacco 11/11/24 15:19 e-Cigarette/Vaping Use Never Used 11/11/24 15:19 PHQ-9: PHQ-9 Score PHQ-9: Total score 0 11/11/24 15:22 Depression Screening Interpretation: Negative Thrive Assessment: Date of Thrive Assessment Date Thrive assessed 11/11/24 11/11/24 15:19 Currently or been in a relationship where the following occur: No concerns reported Results AMB Hemoglobin A1c AMB Hemoglobin A1c 6.8 % Last Edit by RADHA Diggs on 11/11/24 15:23 Results Reviewed Results Reviewed: Laboratory Last Values Hgb A1c (Clinic) 6.8 % (4.0-6.0) H 11/11/24 15:10 Coding Level of Care Code Est Pt Level 4 (19121) Complex EM visit Add On G2211 Diagnoses Follow-up exam, 3-6 months since previous exam Z09 Class 2 severe obesity with body mass index (BMI) of 35 to 39.9 with serious comorbidity E66.01 Diabetes mellitus E11.9 Screening for colon cancer Z12.11 Hypertension I10 Hyperlipidemia E78.5 Additional Codes IVONNE-7 Assessment Billing - IVONNE-7 Assessment Tool: IVONNE-7 Assessment 76610 ([id number]) Assessment & Plan Assessment & Plan (1) Follow-up exam, 3-6 months since previous exam: Code(s): Z09 - Encounter for follow-up examination after completed treatment for conditions other than malignant neoplasm Category: Medical Plan: Normal exam. Will continue to monitor. (2) Class 2 severe obesity with body mass index (BMI) of 35 to 39.9 with serious comorbidity: Code(s): E66.01 - Morbid (severe) obesity due to excess calories Category: Medical Plan: Patient instructed to eat a better diet and exercise. Condition is chronic and stable will continue to monitor. (3) Diabetes mellitus: Code(s): E11.9 - Type 2 diabetes mellitus without complications Category: Medical Plan: A1c level went from 6.6-6.8. Will increase Ozempic to 2 mg weekly. Condition is chronic and stable will continue to monitor. (4) Screening for colon cancer: Code(s): Z12.11 - Encounter for screening for malignant neoplasm of colon Category: Medical Plan: Patient had colonoscopy on 05/06/2022 which was within normal limits. Repeat in 10 years. Condition is chronic and stable. Will continue to monitor. (5) Hypertension: Code(s): I10 - Essential (primary) hypertension Category: Medical Plan: Patient currently on hydrochlorothiazide 25 mg taken daily as prescribed. Blood pressure at goal today. Condition is chronic and stable. Continue to monitor. (6) Hyperlipidemia: Code(s): E78.5 - Hyperlipidemia, unspecified Category: Medical Plan: Patient currently on simvastatin 40 mg taking as prescribed. Condition is chronic and stable will continue to monitor. Plan Plan - Increase Ozempic dosage from 1 mg to 2 mg weekly for improved glycemic control. - Obtain fasting blood work to evaluate lipid profile and other parameters. - Offer follow-up through telehealth or phone call post-blood work results. - Discuss results of blood work once available, particularly any abnormalities. - Continue monitoring blood pressure and general health maintenance. Orders: Orders AMB Hemoglobin A1c Today Micah Feliciano MD E11.9 - Type 2 diabetes mellitus without complications Medications: Changed From semaglutide (Ozempic) 1 mg (0.75 mL) subcut QWEEK 12 weeks 9 mL 1RF To semaglutide (Ozempic) 2 mg (1.5 mL) subcut QWEEK 12 weeks 18 mL 1RF Amelia Narayanan PA-C Patient Instructions: Patient Instructions - Begin taking the increased Ozempic dosage of 2 mg weekly. - Complete fasting blood work as soon as possible. - Await my call for blood work results if any abnormalities are found. - Maintain current blood pressure management regimen. - Seek care if experiencing any sudden chest pain, significant weight changes, or vision problems. - Schedule a follow-up in six months to a year to reevaluate health status. Scribe Plan - Not visible on output: History of Present Illness The patient is a 54-year-old male presenting for a six-month follow-up regarding his chronic conditions, primarily Type 2 Diabetes Mellitus, which was previously managed with Ozempic at a dose of 1 mg. His A1c was last recorded at 6.6 in April and has recently increased slightly to 6.8. The patient has experienced a weight gain from 251 pounds since April to 266 pounds. He has been on an Ozempic treatment plan, with other medications recently refilled, and reports adhering to their prescribed schedules. Additionally, the patient's blood pressure is controlled at 110/70 mmHg. The patient did not complete the necessary blood work prior to this visit, but a plan has been arranged for fasting labs. The patient has undergone a colonoscopy on 05/06/2022, which revealed colonic polyps and diverticulosis but no signs of cancer. There is no known family history of colon cancer due to the patient's adopted status. Social History - The patient does not consume alcohol daily but drinks socially. - The patient was adopted and does not have a detailed family medical history. - The patient has supportive relationships with his family, particularly his sister, who has had significant health issues. Review of Systems - Cardiovascular: Denies chest pain. - Endocrinological: Reports controlled blood glucose, slight weight gain. - Vascular: Denies leg swelling. - Vision: Denies difficulty seeing while driving. - Respiratory: Reports chronic cough persisting post-cold recovery. - Throat: Reports only mild post-nasal drip symptoms. Physical Exam Appearance: Alert. Oriented X3. No acute distress. Head: Normal external exam. Normocephalic. Atraumatic. Eyes: Pupils are equal, round, and reactive to light. Extraocular movements intact. Conjunctiva and sclera normal. Eyelids normal. Ears: External auditory canal normal. Tympanic membranes normal. Throat: Pharynx normal. Uvula midline. Moist mucous membranes. No scratchy throat noted. Neck: Normal inspection. Neck supple. Full range of motion. No adenopathy. Thyroid Normal. No meningeal signs. No neck mass noted. Cardiovascular: Normal heart rate and rhythm. Heart sound normal. No murmurs noted. Pulses normal throughout. Blood pressure recorded at 110/70. Respiratory: No respiratory distress. Painless inspiration. Breath sounds normal. No wheezes/rales/rhonchi noted. Chest nontender. No accessory muscle usage noted or decreased air movement noted. Abdomen: Soft and nontender. Bowel sounds normal in all 4 quadrants. No distention noted. No organomegaly noted. No visible injury noted. Back: No costovertebral angle tenderness. Full range of motion noted. Skin: Skin warm and dry. Normal skin color. Normal skin turgor. No rashes/lesions/lacerations noted. Extremities: No lower extremity edema. Extremities exhibit normal range of motion. Extremities nontender. Neuro: Oriented X 3. No motor deficit. No sensory deficit. Reflexes normal. Results - Labs: Hemoglobin A1c increased from 6.6 to 6.8. Plan - Increase Ozempic dosage from 1 mg to 2 mg weekly for improved glycemic co ntrol. - Obtain fasting blood work to evaluate lipid profile and other parameters. - Offer follow-up through telehealth or phone call post-blood work results. - Discuss results of blood work once available, particularly any abnormalities. - Continue monitoring blood pressure and general health maintenance. Patient was informed and verbally consented to the use of an ambient scribe for clinic note documentation during this visit. Discussion Notes I informed the patient of the slight increase in A1c from 6.6 to 6.8 and recommended increasing the Ozempic dosage to 2 mg weekly to help manage his Type 2 Diabetes Mellitus more effectively. We discussed the next steps in his health management, including obtaining fasting blood work to reassess his lipid profile and other health indicators. The patient is informed about the option to follow up via telehealth or phone call, depending on the blood work results. He agreed to this plan and knows to seek care if any abnormalities arise before the scheduled follow-up. Patient Instructions - Begin taking the increased Ozempic dosage of 2 mg weekly. - Complete fasting blood work as soon as possible. - Await my call for blood work results if any abnormalities are found. - Maintain current blood pressure management regimen. - Seek care if experiencing any sudden chest pain, significant weight changes, or vision problems. - Schedule a follow-up in six months to a year to reevaluate health status.
[2024-11-11 15:12] VITALS: BP 110/70; PULSE 93; TEMP 36.4; O2SAT 93; BMI 35.1
== END 2024-11-11 15:34 | disposition home or self-care (01) ==
PROVIDERS: PCP Internal Medicine; Visit Provider Internal Medicine
DX: E11.69 Type 2 diabetes mellitus with other specified complication (principal); E66.01 Morbid (severe) obesity due to excess calories; Z09 Encounter for follow-up examination after completed treatment for conditions other than malignant neoplasm; Z68.35 Body mass index [BMI] 35.0-35.9, adult; Z12.11 Encounter for screening for malignant neoplasm of colon; I10 Essential (primary) hypertension; E78.5 Hyperlipidemia, unspecified

== ENCOUNTER → 2024-11-11 14:59 | Outpatient (BNVA) | payer OTHER, SELFPAY | PROVIDERS: PCP Internal Medicine; Visit Provider Internal Medicine | DX: Z09 Encounter for follow-up examination after completed treatment for conditions other than malignant neoplasm (principal); E66.01 Morbid (severe) obesity due to excess calories; Z68.35 Body mass index [BMI] 35.0-35.9, adult; E11.9 Type 2 diabetes mellitus without complications; I10 Essential (primary) hypertension; E78.5 Hyperlipidemia, unspecified; Z79.899 Other long term (current) drug therapy; Z28.21 Immunization not carried out because of patient refusal | CPT/HCPCS: 83036; 96127 ==

== ENCOUNTER 2024-11-23 08:23 | Outpatient (REF) | payer OTHER, SELFPAY ==
[2024-11-23 09:04] LABS: Appearance Urine Clear; Color Urine Yellow; Glucose Urine UA >=1000 mg/dL (Negative); Leukocyte Esterase Urine Negative (Negative); Nitrite Urine Negative (Negative); PH 5.5 (5.0-9.0); Specific Gravity - Urine >= 1.030 (1.005-1.025); UMIC TRIGGER UA YES; Urine Blood Negative (Negative); Urine Ketones Negative (Negative); Urine Protein 30 (1+) mg/dL (Neg-Trace)
[2024-11-23 09:06] LABS: Bacteria Urine None Seen (None Seen); Hyaline Casts Urine 0-2 /LPF (0-2); RBC Urine 0-2 /HPF (0-2); Squamous Epithelial Cell Urine 0-2 /HPF (0-2); WBC Urine 0-5 /HPF (0-5)
[2024-11-23 09:07] LABS: Mean Corpuscular HGB Conc 33.3 g/dl (31.0-36.0); Mean Corpuscular Hemoglobin 28.8 pg (27.0-33.0); Mean Corpuscular Volume 86.5 fL (80.0-98.0); Mean Platelet Volume 9.4 fL (9.4-12.4); Platelet Count 255 X10*3/uL (160-400); Red Blood Count 5.55 X10*6/uL (4.60-5.80); Red Cell Distribution Width 12.8 % (11.0-16.0); White Blood Count 10.9 X10*3/uL (4.8-10.8)
[2024-11-23 09:34] LABS: Creatinine Urine 107.89 mg/dL; Microalbum/Creatinine Ratio Ur 147.3 ug/mg cr (<30)
[2024-11-23 09:48] LABS: Alanine Aminotransferase 24 U/L (0-40); Albumin Level 4.4 g/dL (3.5-5.0); Alkaline Phosphatase 62 U/L (39-117); Anion Gap 11 (12-20); Aspartate Amino Transferase 20 U/L (5-37); Bilirubin Direct 0.4 mg/dL (0.0-0.5); Bilirubin Total 1.7 mg/dL (0.0-1.0); Blood Urea Nitrogen 23 mg/dL (9-16); Calcium 9.7 mg/dL (8.4-10.2); Carbon Dioxide 28 mmol/L (22-29); Chloride 105 mmol/L (96-108); Cholesterol 170 mg/dL (<200); Estimated Glomerular Filt Rate > 60; Glucose Random 130 mg/dL (60-115); HDL Cholesterol 48 mg/dL (>40); LDL Cholesterol Calculated 91 mg/dL (<100); Potassium 4.8 mmol/L (3.3-5.1); Sodium 139 mmol/L (135-145); Total Protein 8.1 g/dL (6.5-8.0); Triglycerides 155 mg/dL (<150)
[2024-11-23 09:51] LABS: Thyroid Stimulating Hormone 0.99 uIU/mL (0.32-4.0)
== END 2024-11-23 08:24 | disposition home or self-care (01) ==
LOC: HO.LAB 08:23
PROVIDERS: PCP Internal Medicine; Visit Provider Internal Medicine
DX: E11.9 Type 2 diabetes mellitus without complications (principal)
CPT/HCPCS: 36415; 80048; 80061; 80076; 81001; 81003; 82043; 82570; 84443; 85027

== ENCOUNTER 2025-02-21 12:18 | Outpatient (REF) | payer OTHER, SELFPAY ==
[2025-02-21 14:12] VITALS: BP 108/67; PULSE 80; RESP 16; TEMP 36.6; O2SAT 95
== END 2025-02-21 12:19 | disposition home or self-care (01) ==
LOC: HO.MS 12:18
PROVIDERS: PCP Internal Medicine; Visit Provider Ophthalmology
PROC: (CPT 67840; principal; 2025-02-21 15:00)
DX: D23.122 Other benign neoplasm of skin of left lower eyelid, including canthus (principal)
CPT/HCPCS: 67840; 88304; 88305; J2003

== ENCOUNTER 2025-05-12 14:36 | Outpatient (AMB) | payer OTHER, SELFPAY ==
--- NOTE | 2025-05-12 14:41 | MHC.PC.OV ---
Vital Signs 05/12/25 14:44 Height 6 ft 1 in Weight 258 lb BMI 34.0 BP 122/70 Blood Pressure Location Lt brachial Position Sitting Pulse 80 Pulse Source Pulse Oximeter Temp 97.1 F Temp Source Temporal Artery Scan Pulse Oximetry (%) 96 Oxygen Delivery Method Room Air Intake Visit Reasons: 6mth f/u Intake Note: Patient is here to follow up on DM, HTN, HLD. Forestry Technician Required: No Diesel Maintenance Technician: Not Required per policy Accompanied by: Self / Same As Patient Allergies No Known Allergies (No Known Allergies*) Allergy (Verified 05/13/25 05:39) Medication List - Last Reconciled 05/13/25 by Micah Feliciano MD blood sugar diagnostic ([employer] Ultra Test strips) check once daily blood-glucose meter ([employer] Ultra2 Meter) check once daily colchicine 0.6 mg PO BID empagliflozin (Jardiance) 25 mg PO DAILY hydrochlorothiazide 25 mg PO DAILY lancets ([employer] UltraSoft 2 Lancet) check once daily lisinopril 20 mg PO DAILY pioglitazone 15 mg PO DAILY semaglutide (Ozempic) 2 mg (1.5 mL) subcut QWEEK 12 weeks simvastatin 40 mg PO DAILY Tobacco use date assessed: 05/12/25 Dental Screening Dental Screen Date: 11/11/24 [facility] Medical History Class 2 severe obesity with body mass index (BMI) of 35 to 39.9 with serious comorbidity Diabetes mellitus Surgical History Hx of colonoscopy (~05/06/22) No pertinent past surgical history Family History Other Adopted Social History Housing: House Alcohol intake: current Alcohol intake frequency: a few times a week Alcohol type: beer Patient Tobacco Use Status: Never used Tobacco e-Cigarette/Vaping Use: Never Used Second Hand Smoke Exposure: Yes service: No Current occupational status: employed Current occupation: [employer] Cognitive needs: No Hearing needs: No Vision needs: No Questionnaire PHQ-9 Over the last 2 weeks, how often have you been bothered by any of the following problems? 1. Little interest or pleasure in doing things: not at all 2. Feeling down, depressed, or hopeless: not at all 3. Trouble falling or staying asleep, or sleeping too much: not at all 4. Feeling tired or having little energy: not at all 5. Poor appetite or overeating: not at all 6. Feeling bad about yourself - or that you are a failure or have let yourself or your family down: not at all 7. Trouble concentrating on things, such as reading the newspaper or watching television: not at all 8. Moving or speaking so slowly that other people could have noticed. Or the opposite - being so fidgety or restless that you have been moving around a lot more than usual: not at all 9. Thoughts that you would be better off or of hurting yourself in some way: not at all Total score: 0 Depression Screening Interpretation: Negative Depression Screening Done: Yes Source: Developed by Drs. Raghu Hogan, Luz Gonzalez, Sami Spaulding and colleagues, with an educational ismael from [employer]. Thrive Questionnaire Date Thrive assessed: 05/12/25 I am a: Patient What is your living situation today?: I have a steady place to live Within the past 12 months, did the food you bought not last and you didn't have the money to get more?: Never true Within the past 12 months, did you worry whether your food would run out before you got money to buy more?: Never true Do you have trouble paying for medicines?: No Do you have trouble getting transportation to medical appointments?: No Do you have trouble paying your heating and electricity bill?: No Do you have trouble taking care of your child, family member or friend?: No Do you have trouble with day-to-day activities such as bathing, preparing meals, shopping, managing finances, etc.?: No Are you currently unemployed and looking for a job?: No Are you interested in more education?: No Please select the resources that you would like help with: None Currently or been in a relationship where the following occur: No concerns reported THRIVE Score: 0 AUDIT C Alcohol Use Questionnaire (AUDIT-C) 1. How often do you have a drink containing alcohol?: Monthly or less Total Score: 1 IVONNE-7 AMB Questionnaire IVONNE-7 Date IVONNE - 7 assessed: 05/12/25 Feeling nervous, anxious, or on edge: 0 = Not at all Not being able to stop or control worryin = Not at all Worrying too much about different things: 0 = Not at all Trouble relaxin = Not at all Being so restless that it is hard to sit still: 0 = Not at all Becoming easily annoyed or irritable: 0 = Not at all Feeling afraid as if something awful might happen: 0 = Not at all Total IVONNE-7 score (0-4 normal; 5-9 mild; 10-14 moderate; 15-21 severe): 0 Source: Developed by Drs. Raghu Hogan, Luz Gonzalez, Sami Spaulding and colleagues, with an educational ismael from [employer]. Physical exam (Primary Care) Vital Signs: Last Vital Signs Temp 97.1 F 05/12/25 14:44 Pulse 80 05/12/25 14:44 BP 122/70 05/12/25 14:44 Pulse Ox 96 05/12/25 14:44 Oxygen Delivery Method Room Air 05/12/25 14:44 Care Plan Goal for BP management: BP in range. BMI result Body Mass Index 34.0 BMI Assessment/Plan discussion: High (one pound per week weight loss suggested) BMI High, discussed plan: lifestyle, weight reduction and dietary Tobacco/Smoking Status: Tobacco use Status Tobacco use date assessed 05/12/25 05/12/25 14:51 Patient Tobacco Use Status Never used Tobacco 05/12/25 14:51 e-Cigarette/Vaping Use Never Used 05/12/25 14:51 PHQ-9: PHQ-9 Score PHQ-9: Total score 0 05/12/25 14:56 Depression Screening Interpretation: Negative Thrive Assessment: Date of Thrive Assessment Date Thrive assessed 05/12/25 05/12/25 14:51 Currently or been in a relationship where the following occur: No concerns reported Results AMB Hemoglobin A1c AMB Hemoglobin A1c 6.7 % Last Edit by RADHA Diggs on 05/12/25 14:59 Results Reviewed Results Reviewed: Laboratory Last Values Hgb A1c (Clinic) 6.7 % (4.0-6.0) H 05/12/25 14:41 Coding Level of Care Code Est Pt Level 4 (79850) Complex EM visit Add On G2211 Diagnoses Diabetes mellitus E11.9 Class 2 severe obesity with body mass index (BMI) of 35 to 39.9 with serious comorbidity E66.01 Hypertension I10 Hyperlipidemia E78.5 Assessment & Plan Assessment & Plan (1) Diabetes mellitus: Code(s): E11.9 - Type 2 diabetes mellitus without complications Category: Medical Plan: History of Present Illness - The patient is a 55-year-old male presenting with Type 2 Diabetes Mellitus and for routine preventative care. - Type 2 Diabetes Mellitus: The patient is currently on Ozempic and has noted some weight loss. - Preventative care: The patient underwent a colonoscopy a few years ago and a vision screening last year, both without any issues. Social History - Employment: The patient is currently employed and able to perform work activities without issues. - Vacation: The patient plans to take a vacation but has not yet decided on a destination. Review of Systems - General: Denies any current health concerns. - Gastrointestinal: Denies any issues post-colonoscopy. - Ophthalmologic: Denies any vision problems post-screening. Physical Exam General: Cooperative and healthy appearing Nutritional Appearance: Well nourished Orientation/consciousness: Patient oriented x3 Limitations: No limitations Head: Normal to inspection General: Appearance normal, both eyes and all related structures Neck: Normal visual inspection Chest: Normal palpation of entire chest wall Respiratory: Patient instructed to take deep breaths ormal respiratory effort Neurology: Patient oriented x3 Results Plan 1. Type 2 Diabetes Mellitus - Continue current medication regimen with Ozempic. - Schedule follow-up blood work in six months to monitor A1c levels. 2. Preventative Care - Continue routine screenings including colonoscopy and vision checks as per standard guidelines. Discussion Notes During the visit, we discussed the importance of continuing the current diabetes management plan with Ozempic and the need for regular monitoring of A1c levels. We also reviewed the patient's preventative care measures, including past colonoscopy and vision screening, and emphasized the importance of maintaining these screenings. Patient Instructions - Continue taking Ozempic as prescribed. - Schedule and complete blood work in six months. - Maintain routine screenings such as colonoscopy and vision checks. (2) Class 2 severe obesity with body mass index (BMI) of 35 to 39.9 with serious comorbidity: Code(s): E66.01 - Morbid (severe) obesity due to excess calories Category: Medical Plan: Counseling on the importance of diet and exercise done. (3) Hypertension: Code(s): I10 - Essential (primary) hypertension Category: Medical Plan: Blood pressure is in range. (4) Hyperlipidemia: Code(s): E78.5 - Hyperlipidemia, unspecified Category: Medical Plan: LDL is at target. Orders: Orders Lipid Panel 05/12/25 E11.9 - Type 2 diabetes mellitus without complications, E66.01 - Morbid (severe) obesity due to excess calories, E78.5 - Hyperlipidemia, unspecified, I10 - Essential (primary) hypertension Liver Panel 05/12/25 E11.9 - Type 2 diabetes mellitus without complications, E66.01 - Morbid (severe) obesity due to excess calories, E78.5 - Hyperlipidemia, unspecified, I10 - Essential (primary) hypertension Microalbumin, Random (w Creat) 05/12/25 E11.9 - Type 2 diabetes mellitus without complications, E66.01 - Morbid (severe) obesity due to excess calories, E78.5 - Hyperlipidemia, unspecified, I10 - Essential (primary) hypertension UA and rflx microscopic 05/12/25 E11.9 - Type 2 diabetes mellitus without complications, E66.01 - Morbid (severe) obesity due to excess calories, E78.5 - Hyperlipidemia, unspecified, I10 - Essential (primary) hypertension AMB Hemoglobin A1c 05/12/25 E11.9 - Type 2 diabetes mellitus without complications Complete Blood Count no Diff 05/12/25 E11.9 - Type 2 diabetes mellitus without complications, E66.01 - Morbid (severe) obesity due to excess calories, E78.5 - Hyperlipidemia, unspecified, I10 - Essential (primary) hypertension Basic Metabolic Panel 05/12/25 E11.9 - Type 2 diabetes mellitus without complications, E66.01 - Morbid (severe) obesity due to excess calories, E78.5 - Hyperlipidemia, unspecified, I10 - Essential (primary) hypertension Hemoglobin A1c 05/12/25 E11.9 - Type 2 diabetes mellitus without complications, E66.01 - Morbid (severe) obesity due to excess calories, E78.5 - Hyperlipidemia, unspecified, I10 - Essential (primary) hypertension Thyroid Stimulating Hormone 05/12/25 E11.9 - Type 2 diabetes mellitus without complications, E66.01 - Morbid (severe) obesity due to excess calories, E78.5 - Hyperlipidemia, unspecified, I10 - Essential (primary) hypertension Medications: Refilled semaglutide (Ozempic) 2 mg (1.5 mL) subcut QWEEK 18 mL 1RF 12 weeks
[2025-05-12 14:44] VITALS: BP 122/70; PULSE 80; TEMP 36.2; O2SAT 96; BMI 34.0
== END 2025-05-12 15:03 | disposition home or self-care (01) ==
LOC: HO.HMCH 14:37
PROVIDERS: PCP Internal Medicine; Visit Provider Internal Medicine
DX: E11.9 Type 2 diabetes mellitus without complications (principal)

== ENCOUNTER → 2025-05-12 14:36 | Outpatient (BNVA) | payer OTHER, SELFPAY | PROVIDERS: PCP Internal Medicine; Visit Provider Internal Medicine | DX: E11.9 Type 2 diabetes mellitus without complications (principal); E78.5 Hyperlipidemia, unspecified; I10 Essential (primary) hypertension; E66.01 Morbid (severe) obesity due to excess calories; Z79.899 Other long term (current) drug therapy; Z68.34 Body mass index [BMI] 34.0-34.9, adult | CPT/HCPCS: 83036; 96127 ==